=== PATIENT | male | born 1970 | race African-American/Black ===

== ENCOUNTER 2023-12-14 01:56 | Emergency (ER) | payer BC ==
[2023-12-14 02:07] VITALS: BP 117/75; PULSE 84; RESP 18; TEMP 97.5; BMI 19.8
== END 2023-12-14 03:09 | disposition home or self-care (01) ==
LOC: JER 01:56
DX: E11.40 Type 2 diabetes mellitus with diabetic neuropathy, unspecified (principal); R20.0 Anesthesia of skin
CPT/HCPCS: 99282-25